=== PATIENT | male | born 1975 | race Caucasian/White ===

== ENCOUNTER 2020-06-13 04:35 | Emergency (ER) | payer OTHER, SELFPAY ==
[2020-06-13 04:40] VITALS: BP 171/93; PULSE 60; RESP 15; TEMP 36.2; O2SAT 100
--- NOTE | 2020-06-13 05:54 | ED.GENADULT ---
HPI - General Adult General Chief complaint: Unspecified Stated complaint: Facial swelling Time Seen by Provider: 06/13/20 05:08 History of Present Illness HPI narrative: Patient is a 44-year-old male who presents the ER with left facial swelling. Patient has a small area of his upper lip that has been acting up for the last 6 to 9 months. It drains purulent material when he squeezes it. Last drained a couple days ago. Since then he is felt little nodule and that his face began to swell. No fevers or chills or sweats. No difficulty breathing or swallowing. He has not seen anybody about this and never required antibiotics. Related Data Home Medications Medication Instructions Recorded Confirmed magnesium 250 mg tablet 400 mg PO DAILY tablet 08/17/19 08/17/19 multivitamin 1 tablet PO DAILY 08/17/19 08/17/19 omega-3 fatty acids 1,000 mg 1,000 mg PO DAILY 08/17/19 08/17/19 capsule Allergies Allergy/AdvReac Type Severity Reaction Status Date / Time No Known Allergies Allergy Unverified 08/17/19 08:30 Review of Systems Constitutional: Constitutional: Denies chills and Denies fever(s) Integumentary/Breasts: Comments: Left facial swelling around a small blemish. PMFSH Social History Social History Smoking status: Never smoker Alcohol intake: current Exam Narrative: Exam Narrative: GENERAL: Well-appearing, well-nourished, and in no acute distress. HEAD: Normocephalic, atraumatic. ENT: Mucous membranes moist. Swelling of the left upper lip going up towards the eye. No cellulitis. Nontender. Small blemish to the left upper lip that may represent a cyst or irritated hair follicle. NEURO: Alert and oriented x3. Course Course Emergency Course: Discharge with antibiotics. Vital Signs Vital signs: Vital Signs Temperature 97.2 F L 06/13/20 04:40 Pulse Rate 60 06/13/20 04:40 Respiratory Rate 15 06/13/20 04:40 Blood Pressure 171/93 H 06/13/20 04:40 Pulse Oximetry 100 06/13/20 04:40 Temperature 97.2 F L 06/13/20 04:40 Pulse Rate 60 06/13/20 04:40 Respiratory Rate 15 06/13/20 04:40 Blood Pressure 171/93 H 06/13/20 04:40 Pulse Oximetry 100 06/13/20 04:40 Medical Decision Making Vital Signs Vital Signs: Vital Signs Temperature 97.2 F L 06/13/20 04:40 Pulse Rate 60 06/13/20 04:40 Respiratory Rate 15 06/13/20 04:40 Blood Pressure 171/93 H 06/13/20 04:40 Pulse Oximetry 100 06/13/20 04:40 Temperature 97.2 F L 06/13/20 04:40 Pulse Rate 60 06/13/20 04:40 Respiratory Rate 15 06/13/20 04:40 Blood Pressure 171/93 H 06/13/20 04:40 Pulse Oximetry 100 06/13/20 04:40 Discharge Plan Discharge Clinical Impression: Infected cyst of skin Patient Disposition: Home, Self-Care Condition: Stable Instructions: Abscess (ED), Cyst (ED) Additional Instructions: Return the ER if your swelling is worsening, you cannot breathe, you cannot swallow or you have other concerns. Follow-up with plastic surgeon for further management. Prescriptions: New sulfamethoxazole-trimethoprim [Bactrim DS] 800-160 mg tablet 1 tablet PO Q12H Qty: 14 RF: 0 No Action multivitamin [Daily Multi-Vitamin] Tablet 1 tablet PO DAILY RF: 0 omega-3 fatty acids [Fish Oil Concentrate] 1,000 mg capsule 1,000 mg PO DAILY RF: 0 magnesium 250 mg tablet 400 mg PO DAILY RF: 0 rosuvastatin [Crestor] 10 mg tablet 10 mg PO DAILY Qty: 90 RF: 1 Follow-up/Referrals: Kartik Torres MD [Physician] - 1 Week Bashir Roe MD [Physician] - 1 Week Jaleel Medina DO [Primary Care Provider] -
[2020-06-13 06:25] VITALS: BP 144/106; PULSE 67; RESP 17; O2SAT 97
== END 2020-06-13 06:26 | disposition home or self-care (01) ==
PROVIDERS: Emergency Provider Emergency Medicine; PCP Internal Medicine
DX: L72.9 Follicular cyst of the skin and subcutaneous tissue, unspecified (principal); L08.9 Local infection of the skin and subcutaneous tissue, unspecified
CPT/HCPCS: 99283

== ENCOUNTER 2020-07-03 09:40 | Outpatient (CLI) | payer OTHER, SELFPAY ==
--- NOTE | 2020-07-08 12:40 | WPDHOLTEREM ---
Holter/Event Monitor Holter/Event Monitor Date of procedure: 07/03/20 Procedure Type: 24 hour holter monitor Indications: PVC's Conclusion: 1. 24 hour holter monitor on 07/03/20. 2. Underlying rhythm is sinus rhythm. HR range 45-109 bpm; average HR 70 bpm. 3. There are 6 premature supraventricular complexes. No supraventricular tachycardia. 4. There are 1,145 premature ventricular complexes, 1 ventricular couplet, 78 ventricular bigeminy. No ventricular tachycardia. 5. No sinoatrial or atrioventricular blocks. No significant pauses greater than 2 seconds. 6. No symptoms available for correlation.
== END 2020-07-03 09:41 | disposition home or self-care (01) ==
LOC: ANHCARD 09:42
PROVIDERS: PCP Internal Medicine; Visit Provider Internal Medicine
DX: I49.3 Ventricular premature depolarization (principal)
CPT/HCPCS: 93225; 93226

== ENCOUNTER 2020-09-26 12:04 | Inpatient (IN) | payer OTHER, SELFPAY ==
[2020-09-26] VITALS (11 sets, daily range): BP systolic 131–163; BP diastolic 68–79; PULSE 73–90; RESP 13–20; TEMP 36.9–37.9; O2SAT 90–96
--- NOTE | ~2020-09-26 | CT_ITS ---
EXAMINATION: CTA chest PE protocol DATE: 09/26/2020 14:04 INDICATION: Shortness of breath and cough. Chest pain. TECHNIQUE: Computed tomography angiography (CTA) of the chest was performed with 100 mL Omnipaque-350 intravenous contrast timed to evaluate the pulmonary arteries. Coronal maximum intensity projection 3D-reconstructions were created by the technologist. Automated exposure control and iterative reconst ruction technique were employed. The dose-length product was 926.10 mGy-cm. COMPARISON: CT abdomen and pelvis 01/05/16 FINDINGS: There are patchy groundglass opacities with septal thickening involving all lobes. No pleur al effusion. The heart size is normal. No pericardial effusion. There is mild mediastinal and bilater al hilar lymphadenopathy. No pulmonary embolus. There is mild thoracic spondylosis. IMPRESSION: 1. No pulmonary embolus. Sensitivity and specificity are moderately decreased by motion artifact. 2. Diffuse lung disease, consistent with COVID-19 pneumonia. 3. Mild mediastinal and bilateral hilar lymphadenopathy, likely reactive. Reviewed, dictated and finalized at location A. RISK OB IMPRESSION: 1. No pulmonary embolus. Sensitivity and specificity are moderately decreased b y motion artifact. 2. Diffuse lung disease, consistent with COVID-19 pneumonia. 3. Mild mediastinal and bilateral hilar lymphadenopathy, likely reactive.
--- NOTE | ~2020-09-26 | XR_ITS ---
EXAMINATION: XR chest 1V portable DATE: 09/26/2020 13:14 INDICATION: Shortness of breath. Fever. COVID-19 exposure. TECHNIQUE: A single frontal view of the chest was obtained. COMPARISON: Chest 2 views 05/04/2011, CT abdomen and pelvis 01/05/16 FINDINGS: There are patchy airspace opacities in all lung zones bilaterally. No pleural effusion or p neumothorax. The heart size is normal. IMPRESSION: 1. Diffuse lung disease, consistent with COVID-19 pneumonia. Reviewed, dictated and finalized at location A. ETING TECHNOLOGY COORDINATOR
--- NOTE | 2020-09-26 12:15 | ECG_ITS ---
Measurements Intervals [place] Rate: 86 P: 32 NC: 181 QRS: -5 QRSD: 103 T: -1 QT: 364 QTc: 436 Interpretive Statements SINUS RHYTHM INCOMPLETE RIGHT BUNDLE BRANCH BLOCK DELAYED PRECORDIAL R/S TRANSITION BORDERLINE T WAVE ABNORMALITY- INFERIOR LEADS BORDERLINE ECG Electronically Signed On 09-26-2020 13:05:51 [employer]PER[employer]ING by Tank Padgett D.O.
--- NOTE | 2020-09-26 12:41 | PC.NURSE ---
Patient placed on oxygen at 2 Li NC for room air sat of 89%.
--- NOTE | 2020-09-26 13:01 | ED.GENADULT ---
HPI - General Adult General Chief complaint: Upper Respiratory Infection Stated complaint: COVID+, SOB Time Seen by Provider: 09/26/20 12:35 Source: patient Mode of arrival: ambulatory Limitations: no limitations History of Present Illness HPI narrative: This patient is a 45 year old male who presents for evaluation of shortness of breath. He states he developed symptoms 1 days ago. His symptoms started with chills, sweating, body aches, fever. He reports he was tested about 8 days ago , and it was negative. His and daughter tested positive. He reports he has continued to have intermittent fever. He reports having a headache that has now resolved. He is here in ER because he has been having worsening shortness of breath. He reports he is having symptoms of pain and difficulty taking a breath in. Related Data Home Medications Medication Instructions Recorded Confirmed magnesium 250 mg tablet 400 mg PO DAILY tablet 08/17/19 09/26/20 multivitamin 1 tablet PO DAILY 08/17/19 09/26/20 omega-3 fatty acids 1,000 mg 1,200 mg PO DAILY 08/17/19 09/26/20 capsule Allergies Allergy/AdvReac Type Severity Reaction Status Date / Time No Known Allergies Allergy Verified 09/26/20 12:19 Review of Systems Review of Systems: All systems reviewed & are unremarkable except as noted in HPI and below Constitutional: Constitutional: Reports chills, Reports fatigue and Reports fever(s) Respiratory: Respiratory: Reports cough and Reports dyspnea Gastrointestinal: Gastrointestinal: Denies abdominal pain and Reports nausea Musculoskeletal: Musculoskeletal: Reports myalgias Neurologic: Reports headache(s) [facility] Past Medical History Medical History (Updated 09/26/20 @ 23:26 by Carol De Leon MD) Asthma As a child but outgrew it. 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 The patient is a full code. His is the durable power contracts attorney for healthcare. They have 2 children. Patient is a lifelong non smoker and occasionally has a drink of alcohol. No marijuana or illicit drugs. Smoking status: Never smoker Alcohol intake: never Substance use: never Gender identity (if verbalized by the patient): Male Spiritual care concerns: No Exam Const: General: no acute distress and alert Orientation/consciousness: patient oriented x3 HENMT: Head: atraumatic General nose exam: No nasal polyps present Face and sinus: face symmetric Mouth: Yes Normal oral and palatal mucosa present, Yes lip normal, Yes oropharynx normal and Yes moist mucous membranes Throat: posterior oropharynx normal and tonsils normal Eyes: Pupils: Equal, round and reactive pupils present EOM: EOMs intact bilaterally Resp: Effort & Inspection: normal respiratory effort and not tachypneic Auscultation: no rales, no rhonchi, no wheezes and diminished lung sounds Cardio: Rate: regular rate Rhythm: regular rhythm Heart sounds: no murmurs GI: GI Palp: Yes Soft to palpation, No Tenderness to palpation present (GI) and No Guarding due to palpation present (GI) Auscultation: normal bowel sounds Neuro: General: patient oriented x3 and moves all extremities Extrem: General: normal to inspection Psych: Mental Status: mental status steve
[2020-09-26 13:20] LABS: Basophils Percent Auto 0.2 % (0.2-1.2); Hematocrit 40.7 % (42.0-52.0); Hemoglobin 13.3 g/dL (14.0-18.0); Immature Granulocyte Absolute 0.05 K/mm3 (0.00-0.031); Immature Granulocyte Percent A 0.5 % (0-0.5); Lymphocytes Percent Auto 10.8 % (18.3-44.2); Mean Corpuscular HGB Conc 32.7 g/dl (32-36); Mean Corpuscular Hemoglobin 27.4 pg (26-34); Mean Corpuscular Volume 83.9 fl (80-100); Mean Platelet Volume 11.1 fl (7.4-10.4); Monocytes Absolute Auto 0.8 K/mm3 (0.1-0.6); Monocytes Percent Auto 8.4 % (2.6-8.5); Neutrophils Absolute Auto 7.4 K/mm3 (1.3-6.7); Neutrophils Percent Auto 80.1 % (45.5-73.1); Platelet Count Result 195 k/mm3 (150-375); Red Blood Count 4.85 M/mm3 (4.6-6.20); Red Cell Distribution Width 13.6 % (11.5-14.5); White Blood Count 9.3 K/mm3 (4.5-10.0)
[2020-09-26] MEDS: ALBUTEROL SULFATE (*SP) AEROSOL 1 PUFF 6 PUFF INHALATION (13:21)
[2020-09-26 13:31] LABS: Prothrombin Time 14.1 Seconds (11.1-14.7)
[2020-09-26 13:32] LABS: Partial Thromboplastin Time 32.5 SECONDS (22.3-36.8)
[2020-09-26 13:33] LABS: Lactic Acid Reflex 0.9 mmol/L (0.7-2.1)
[2020-09-26 13:34] LABS: D Dimer 0.87 ug/mL (<0.48)
[2020-09-26 13:35] LABS: Alanine Aminotransferase 46 U/L (4-50); Albumin Level 3.8 g/dL (3.5-5.1); Alkaline Phosphatase 51 U/L (38-126); Anion Gap 6 mmol/L (8-16); Aspartate Amino Transferase 54 U/L (17-59); Bilirubin,Total 0.6 mg/dL (0.2-1.3); Blood Urea Nitrogen 16 mg/dL (9-20); CRP 3.5 mg/dL (<1.0); Calcium 8.3 mg/dL (8.4-10.2); Carbon Dioxide 28 mmol/L (22-30); Chloride 102 mmol/L (98-107); Estimated CRCL calculation 114 ml/min; Estimated Glomerular Filt Rate > 60; Glucose 127 mg/dL (75-110); Sodium 136 mmol/L (137-145)
[2020-09-26 13:41] LABS: Alveolar/Arterial O2 Gradient 101.4 mmHg; Base Excess ABG -0.2 mEq/l (+/-2.0); Carboxyhemoglobin 0.3 % THb (0-2.0); Fractional Inspired Oxygen 28 %; HCO3 ABG 22.7 mEq/l (22.0-26.0); Methemoglobin ABG 0.2 %THb (0-1.5); Oxygen Content ABG 17.7 %vol (16.0-22.0); Oxygen Saturation ABG 92.9 % (95.0-100.0); Oxyhemoglobin 91.1 % THb (90.0-100.0); PO2 ABG 60.5 mmHg (80.0-100.0); PO2 FiO2 Ratio Arterial Blood 2.16 %; Reduced Hemoglobin 8.4 %THb (0-5.0); Total Hemoglobin 13.8 g/dL (12.0-18.0); pH ABG 7.468 (7.350-7.450)
[2020-09-26 13:42] LABS: Device ROOM AIR; Site Drawn RIGHT BRACHIAL
[2020-09-26 13:44] LABS: NT Pro B Type Natriuretic Pept 43 PG/ML (5-100); Troponin I < 0.012 ng/mL (0.000-0.034)
[2020-09-26 13:50] LABS: Add Urine Microscopic? YES; Appearance Urine Clear (Clear); Bacteria Urine Trace /hpf; Bilirubin Urine Negative (Negative); Blood Urine Negative (Negative); Color Urine Yellow (Yellow); Glucose Urine UA Negative (Negative); Ketones Urine Trace mg/dL (Negative); Leukocyte Esterase Ur Negative LEU/UL (Negative); Mucus Urine Moderate /lpf; Nitrate Urine Negative (Negative); Protein Urine 1+ mg/dL (Negative); RBC Urine 0-2 /hpf (0-2); Specific Grav Ur 1.021 (1.001-1.035); WBC Urine 0-3 /hpf
[2020-09-26] MEDS: DEXAMETHASONE SOD PHOS INJ 4 MG/ML VIAL 6 MG IV PUSH (14:30)
--- NOTE | 2020-09-26 16:29 | ADMGEN ---
This patient, Antonio Cabrera, was admitted to [facility] Surg Room 326-01. Patient/family oriented to hospital policies and general routines including ID bracelet, bed and alarms, visiting hours, pain management, procedures, bathroom and other care routines, personal items, smoking policy, room service/diet, and visiting hours. Information on how to activate the Rapid Response Team has been discussed. Patient/Family are encouraged to report perceived risks to care and to ask questions if they do not understand what they are told or what they should do.
[2020-09-26] MEDS: ACETAMINOPHEN 325 MG TABLET 650 MG PO (17:00)
--- NOTE | 2020-09-26 21:20 | PM.IMHP ---
H&P: HPI History of Present Illness Date/Time: 09/26/20 21:20 Chief Complaint: Shortness of breath Narrative: Antonio Cabrera is a 45 year old male rest a history of hypertension and asthma as a child. He no longer has a inhaler at home. The patient has a history of having frequent PVCs and palpitations. The patient and his family have symptoms of COVID-19. His and 2 children tested positive. Eight days ago the patient tested negative. However the patient has been short of breath which got worse about a day ago and he still continues to run fevers. The patient stated he feels very fatigued. He does not have any loss of taste or smell. Patient stated that he is eating and drinking okay today. He did have some nausea earlier but that is pretty much subsided. The patient stated he is having difficulty taking in a deep breath. He did have a CT a pulmonary which is negative for PE. Was read as diffuse lung disease consistent with COVID-19 pneumonia. Mild mediastinal and bilateral hilar lymphadenopathy likely reactive. The patient stated that his symptoms initially started on the of this month. The patient was started on IV Decadron and placed on oxygen at 2 L per nasal cannula. We discussed positioning with pronation for 30 minutes to 2 hours rotating from side to side and on his back. The patient was requesting some nebulizer treatments but I explained that we need to use the inhaler instead of the nebulizer since the patient is not in a negative pressure room. On a Zithromax and Rocephin and given an inhaler that Decadron and Tylenol in the emergency room. The patient is admitted to observation status on the date of service 09/26/2020. Review of Systems Review of Systems: All systems reviewed & are unremarkable except as noted in HPI and below Constitutional: Constitutional: Reports as per HPI and Reports no additional constitutional complaints Eyes: Eyes: Reports as per HPI and Reports no additional eye complaints ENT: Reports system reviewed and no additional complaints, except as documented and Reports Normal hearing present Cardiovascular: Cardiovascular: Reports no additional cardiovascular complaints Respiratory: Respiratory: Reports no additional respiratory complaints and Reports no additional respiratory complaints Gastrointestinal: Gastrointestinal: Reports as per HPI and Reports no additional gastrointestinal complaints Musculoskeletal: Musculoskeletal: Reports no additional musculoskeletal complaints Integumentary/Breasts: Skin/Breast: Reports system reviewed and no additional complaints, except as docu and Reports as per HPI Neurologic: Reports system reviewed and no additional complaints, except as documented, Reports as per HPI and Reports Normal hearing present Psychiatric: Psychiatric: Reports no additional psychiatric complaints and Reports as per HPI Endocrine: Endocrine: Reports no additional endocrine complaints Hematologic/Lymphatic: Hematologic/Lymphatic: Reports no additional hematologic/lymphatic complaints Allergic/Immunologic: Allergic/Immunologic: Reports no additional allergic/immunologic complaints [facility] Past Medical History Medical History (Updated 09/26/20 @ 21:39 by Janette Grove NP) Asthma As a child but outgrew it. 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
[2020-09-26 22:42] LABS: SARS-CoV-2 RNA PCR Positive
[2020-09-27] VITALS (11 sets, daily range): BP systolic 137–160; BP diastolic 56–84; PULSE 66–88; RESP 16–20; TEMP 36.4–38.5; O2SAT 92–100
[2020-09-27] MEDS: ALBUTEROL SULFATE (*SP) AEROSOL 1 PUFF 2 PUFF INHALATION ×4 (02:35→21:08)
[2020-09-27 06:55] LABS: Basophils Percent Auto 0.1 % (0.2-1.2); Hematocrit 40.4 % (42.0-52.0); Hemoglobin 13.3 g/dL (14.0-18.0); Immature Granulocyte Absolute 0.07 K/mm3 (0.00-0.031); Immature Granulocyte Percent A 0.6 % (0-0.5); Lymphocytes Absolute Auto 0.87 K/mm3 (0.9-3.2); Lymphocytes Percent Auto 7.5 % (18.3-44.2); Mean Corpuscular HGB Conc 32.9 g/dl (32-36); Mean Corpuscular Hemoglobin 27.4 pg (26-34); Mean Corpuscular Volume 83.3 fl (80-100); Monocytes Absolute Auto 0.9 K/mm3 (0.1-0.6); Monocytes Percent Auto 7.3 % (2.6-8.5); Neutrophils Absolute Auto 9.8 K/mm3 (1.3-6.7); Neutrophils Percent Auto 84.5 % (45.5-73.1); Platelet Count Result 223 k/mm3 (150-375); Red Blood Count 4.85 M/mm3 (4.6-6.20); Red Cell Distribution Width 13.4 % (11.5-14.5); White Blood Count 11.6 K/mm3 (4.5-10.0)
[2020-09-27 07:11] LABS: Alanine Aminotransferase 48 U/L (4-50); Albumin Level 3.8 g/dL (3.5-5.1); Alkaline Phosphatase 50 U/L (38-126); Anion Gap 6 mmol/L (8-16); Aspartate Amino Transferase 51 U/L (17-59); Bilirubin,Total 0.5 mg/dL (0.2-1.3); Blood Urea Nitrogen 16 mg/dL (9-20); Calcium 8.6 mg/dL (8.4-10.2); Carbon Dioxide 30 mmol/L (22-30); Chloride 103 mmol/L (98-107); Estimated CRCL calculation 140 ml/min; Estimated Glomerular Filt Rate > 60; Glucose 152 mg/dL (75-110); Sodium 139 mmol/L (137-145)
[2020-09-27] MEDS: OMEGA 3 POLYUNSAT FATTY ACIDS 1 GM CAP PO (09:25)
[2020-09-27] MEDS: MULTIVITAMINS THERAPEUTIC TAB (*BKC) 1 TABLET PO (09:25)
[2020-09-27] MEDS: amLODIPine BESYLATE 5 MG TABLET PO (09:25)
[2020-09-27] MEDS: ROSUVASTATIN 10 MG TABLET PO (09:25)
[2020-09-27] MEDS: DEXAMETHASONE SOD PHOS INJ 4 MG/ML VIAL 6 MG IV PUSH (09:26)
[2020-09-27] MEDS: ENOXAPARIN 40 MG/0.4 ML SYRINGE SUB-Q (09:26)
[2020-09-27] MEDS: MAGNESIUM OXIDE 400 MG TABLET PO (11:54)
--- NOTE | 2020-09-27 14:30 | PM.IMPN ---
Progress Note: A&P Assessment and Plan (1) Pneumonia due to COVID-19 virus: Code(s): U07.1 - COVID-19; J12.82 - Pneumonia due to coronavirus disease 2019 Status: Acute Assessment and Plan: With acute respiratory failure with hypoxia, initially requiring 2 L O2 NC, now on RA. Patient outside window for Remdesivir. He was placed on Decadron from ED. IV antibiotics in ED; has since been d/c. Continue with IV decadron (day #2) Will continue with supportive care with Robitussin and Tylenol prn Continue with inhalers. Proning and Incentive spirometer encouraged Home O2 Eval tomorrow Anticipate d/c tomorrow if on RA for >24 hours (2) Hypertension: Code(s): I10 - Essential (primary) hypertension Status: Chronic Assessment and Plan: BP 160s sys most recently continue with home antihypertensives (3) Mixed hyperlipidemia: Code(s): E78.2 - Mixed hyperlipidemia Status: Chronic Assessment and Plan: Continue with home meds (4) PVCs (premature ventricular contractions): Code(s): I49.3 - Ventricular premature depolarization Status: Acute Assessment and Plan: No acute issues. F/u with Senior Software Engineer Subjective Date/time seen: 09/27/20 14:30 Interval history: Patient is a 45 yo M with history of HTN and HLD, and distant history of childhood asthma who is seen in follow up for COVID pneumonia and acute respiratory failure with hypoxia. Reports symptoms started roughly 2 weeks ago. Patient states he feels much better today. Less SOB and able to take deep inspirations. Denies cough. He recently was placed on RA today and is tolerating it fine thus far. Had some chills/sweats last night, but resolved. No other complaints. Denies f/c/s, headaches, dizziness, lightheadedness, cp/palpitations, n/v/d/c, abd pain, dysuria, calf pain/swelling. Review of Systems Review of Systems: All systems reviewed & are unremarkable except as noted in HPI and below Exam Narrative: Exam Narrative: General: Patient sitting on couch in no acute distress. HEENT: Normocephalic, EOMI, oral mucosa moist. Cardiovascular: Rate and rhythm are regular. No notable murmur, rub, or gallop. Respiratory: Slightly coarse breath sounds b/l, diminished BS, Non-labored breathing. On RA at time of visit Abdomen: Soft, non-tender, non-distended, bowel sounds present. Extremities: Peripheral pulses intact. No edema. NTTP b/l calves Neuro: No focal neurological deficits. Speech is clear. Objective Data Vital Signs Vital Signs: Last Vital Signs Temp 98.6 F 09/27/20 12:00 Pulse 78 09/27/20 12:00 Resp 18 09/27/20 12:00 BP 160/69 H 09/27/20 12:00 Pulse Ox 96 09/27/20 13:24 Intake/Output Intake/Output: Intake & Output 09/24/20 09/25/20 09/26/20 09/27/20 23:59 23:59 23:59 23:59 Intake Total 390 860 Balance 390 860 Meds/Results Medications: Active Medications Generic Name Dose Route Start Last Admin Trade Name Peggy PRN Reason Stop Dose Admin Acetaminophen 650 mg 09/26/20 16:41 09/26/20 17:00 Acetaminophen 325 Mg Tablet PO 650 mg Q4H PRN Administration Headache Albuterol 2 puff 09/27/20 02:00 09/27/20 09:26 Albuterol Sulfate (*Sp) Aerosol 1 Puff INHALATION 2 puff Q6HRT CHELSEA Administration Amlodipine Besylate 5 mg 09/27/20 09:00 09/27/20 09:25 Amlodipine Besylate 5 Mg Tablet PO 5 mg DAILY CHELSEA Administration Dexamethasone Sodium Phosphate 6 mg 09/27/20 09:00 09/27/20 09:26 Dexamethasone Sod Phos Inj 4 Mg/Ml Vial IV PUSH 10/05/20 09:01 6 mg DAILY CHELSEA Administration Enoxaparin Sodium 40 mg 09/27/20 09:00 09/27/20 09:26 Enoxaparin 40 Mg/0.4 Ml Syringe SUB-Q 40 mg DAILY CHELSEA Administration Fish Oil 1 gm 09/27/20 09:00 09/27/20 09:25 [place] 3 Polyunsa
[2020-09-27] MEDS: ACETAMINOPHEN 325 MG TABLET 650 MG PO (17:49)
[2020-09-27] MEDS: guaiFENesin/DEXTROMETHORPHAN 10 ML UDC PO (21:11)
[2020-09-28] VITALS (10 sets, daily range): BP systolic 133–148; BP diastolic 64–94; PULSE 66–78; RESP 16–20; TEMP 36.5–37.4; O2SAT 86–95
[2020-09-28] MEDS: ALBUTEROL SULFATE (*SP) AEROSOL 1 PUFF 2 PUFF INHALATION ×3 (02:05→13:19)
[2020-09-28 06:56] LABS: Basophils Percent Auto 0.2 % (0.2-1.2); Hemoglobin 12.5 g/dL (14.0-18.0); Immature Granulocyte Absolute 0.16 K/mm3 (0.00-0.031); Lymphocytes Absolute Auto 1.09 K/mm3 (0.9-3.2); Lymphocytes Percent Auto 6.9 % (18.3-44.2); Mean Corpuscular HGB Conc 32.9 g/dl (32-36); Mean Corpuscular Hemoglobin 27.4 pg (26-34); Mean Corpuscular Volume 83.2 fl (80-100); Mean Platelet Volume 10.9 fl (7.4-10.4); Monocytes Percent Auto 6.5 % (2.6-8.5); Neutrophils Absolute Auto 13.6 K/mm3 (1.3-6.7); Neutrophils Percent Auto 85.4 % (45.5-73.1); Platelet Count Result 248 k/mm3 (150-375); Red Blood Count 4.57 M/mm3 (4.6-6.20); Red Cell Distribution Width 13.7 % (11.5-14.5); White Blood Count 15.9 K/mm3 (4.5-10.0)
[2020-09-28 07:23] LABS: Anion Gap 6 mmol/L (8-16); Blood Urea Nitrogen 19 mg/dL (9-20); Calcium 8.3 mg/dL (8.4-10.2); Carbon Dioxide 26 mmol/L (22-30); Chloride 104 mmol/L (98-107); Estimated CRCL calculation 125 ml/min; Estimated Glomerular Filt Rate > 60; Glucose 140 mg/dL (75-110); Magnesium 2.1 mg/dL (1.6-2.3); Potassium 4.1 mmol/L (3.4-5.0); Sodium 136 mmol/L (137-145)
[2020-09-28] MEDS: ENOXAPARIN 40 MG/0.4 ML SYRINGE SUB-Q (08:49)
[2020-09-28] MEDS: OMEGA 3 POLYUNSAT FATTY ACIDS 1 GM CAP PO (08:50)
[2020-09-28] MEDS: MULTIVITAMINS THERAPEUTIC TAB (*BKC) 1 TABLET PO (08:50)
[2020-09-28] MEDS: amLODIPine BESYLATE 5 MG TABLET PO (08:50)
[2020-09-28] MEDS: MAGNESIUM OXIDE 400 MG TABLET PO (08:50)
[2020-09-28] MEDS: DEXAMETHASONE SOD PHOS INJ 4 MG/ML VIAL 6 MG IV PUSH (08:50)
[2020-09-28] MEDS: ROSUVASTATIN 10 MG TABLET PO (08:50)
--- NOTE | 2020-09-28 11:49 | PM.DS ---
DS: Admitting Diagnosis Admitting Diagnosis Admitting Diagnosis: COVID pneumonia, acute respiratory failure with hypoxia DS: Discharge Diagnosis Discharge Diagnosis (1) Pneumonia due to COVID-19 virus: Code(s): U07.1 - COVID-19; J12.82 - Pneumonia due to coronavirus disease 2018 Status: Acute Assessment and Plan: With acute respiratory failure with hypoxia, intermittently on O2 NC. Patient outside window for Remdesivir. He was placed on Decadron from ED. IV antibiotics in ED; has since been d/c. He feels better today and comfortable with discharge home with supportive care Decadron IV x 3 days during stay; will do 5 additional days of PO dexamehtasone Home O2 eval today Continue with supportive care with Robitussin and Tylenol prn Continue with inhaler at discharge Proning and Incentive spirometer encouraged Discharge home today after Home O2 eval (2) Hypertension: Code(s): I10 - Essential (primary) hypertension Status: Chronic Assessment and Plan: BP 130s sys most recently continue with home antihypertensives (3) Mixed hyperlipidemia: Code(s): E78.2 - Mixed hyperlipidemia Status: Chronic Assessment and Plan: Continue with home meds (4) PVCs (premature ventricular contractions): Code(s): I49.3 - Ventricular premature depolarization Status: Acute Assessment and Plan: No acute issues. F/u with Chiseler Head DS: Summary Hospital Course Reason for hospitalization: COVID pneumonia, acute respiratory failure with hypoxia Hospital Course: Date of arrival: 09/26/20 Date of discharge: 09/28/20 Patient is a 45 yo M with history of HTN and HLD, and distant history of asthma who presented to the ED with SOB. Patient symptoms started roughly 2 weeks prior to admission. He was tested for COVID 8 days prior to arrival and was negative, however, his and daughter had similar symptoms and tested positive. In the ED, he was swabbed for COVID again and placed on 2L O2 NC as he was found to be mildly hypoxic. He was started on Decadron in the ED. Patient admitted under this setting. Please see H&P for further details. Patient was admitted to the hospitalist service for further management/treatment. Patient continued on IV Decadron during stay. He was briefly weaned to RA was again placed on O2 prior to discharge. Home O2 eval showed he needed no oxygen at rest and 2 L with activity. Plan was for him to be discharge with 5 days of PO dexamethasone and an albuterol inhaler. he was to follow up with his PCP after discharge. He was instructed to continue to isolate and follow up with his PCP to discuss when to come off isolation. His VS remained stable during course. Patient agreeable and comfortable with plan for discharge. Patient hemodynamically stable and in improved condition for discharge on 09/28 Status at Discharge Overall status at discharge: patient is progressing back to baseline Time Spent with Patient Time attestation: Total time spent providing and/or coordinating discharge services: Time spent: Greater than 30 minutes Exam Narrative: Exam Narrative: General: Patient sitting on couch in no acute distress. HEENT: Normocephalic, EOMI, oral mucosa moist. Cardiovascular: Rate and rhythm are regular. No notable murmur, rub, or gallop. Respiratory: Slightly coarse breath sounds b/l, diminished BS, Non-labored breathing. On 2L O2 via NC at time of visit Abdomen: Soft, non-tender, non-distended, bowel sounds present. Extremities: Peripheral pulses intact. No edema. NTTP b/l calves Neuro: No focal neurological deficits. Speech is clear. DS: Data Data Completed and Pending Labs on day of discharge: Laboratory Tests 09/28/20 06:46 09/28/20 06:46 [employer]
--- NOTE | 2020-09-28 13:59 | HOMEO2EVAL ---
Addendum entered by Vanna Marc, BREAKFAST MANAGER 09/28/20 14:01: Pt requires 2L Nc with exertion Original Note: Home Oxygen Evaluation RC: Home Oxygen (O2) Evaluation Start: 09/28/20 10:00 Freq: ONCE Status: Active Protocol: RPE Activity Type Activity Date Activity User E-Sign Co-Sign Detail Recorded Client Recorded Date Recorded By Document 09/28/20 12:30 TJT [email or web address] 09/28/20 13:51 TJT Document 09/28/20 12:40 TJT [email or web address] 09/28/20 13:54 TJT Document 09/28/20 12:45 TJT [email or web address] 09/28/20 13:55 TJT Document 09/28/20 12:50 TJT [email or web address] 09/28/20 13:57 TJT Document 09/28/20 12:35 TJT [email or web address] 09/28/20 13:52 TJT Document 09/28/20 13:57 TJT [email or web address] 09/28/20 13:58 TJT 09/28/20 09/28/20 09/28/20 12:30 12:40 12:45 Home O2 Evaluation Test Phase Resting Resting Exercise Oxygen Delivery Room Air Oxygen Flow Rate (L/min) 1 1 Fraction of Inspired Oxygen (%) 21 24 24 Pulse Oximetry (90-100 %) 90 91 86 L Pulse Rate (60-100 beats/min) 68 65 65 Activity Tolerance Good Good Ambulation Distance (feet) 75 Treatment Charges O2 Evaluation 09/28/20 09/28/20 09/28/20 12:50 12:35 13:57 Home O2 Evaluation Test Phase Resting Exercise Exercise Oxygen Delivery Room Air Oxygen Flow Rate (L/min) 2 2 Fraction of Inspired Oxygen (%) 28 21 28 Pulse Oximetry (90-100 %) 94 86 L 92 Pulse Rate (60-100 beats/min) 66 70 78 Activity Tolerance Good Good Good Ambulation Distance (feet) 75 75 Treatment Charges
--- NOTE | 2020-09-29 10:03 | PCRCNOTE ---
PT. O2 WAS SET UP WITH [facility] [phone]
--- NOTE | 2020-10-03 07:41 | PC.NURSE ---
Blood cx are negative.
== END 2020-09-28 16:15 | disposition home or self-care (01) | DRG 177 ==
LOC: ANHED 14:59 → ANH3MEDSUR 16:09
PROVIDERS: Physician Assistant; Admitting Provider Internal Medicine; Emergency Provider General Practice; PCP Internal Medicine; Visit Provider Family Medicine
DX: U07.1 COVID-19 (principal); J12.82 Pneumonia due to coronavirus disease 2019; E78.2 Mixed hyperlipidemia; I10 Essential (primary) hypertension; I49.3 Ventricular premature depolarization
CPT/HCPCS: 36415; 36600; 71045; 71275; 80048; 80053; 81001; 82375; 82805; 83050; 83605; 83735; 83880; 84484; 85025; 85380; 85610; 85730; 86140; 87040; 87804; 93005; 94618; 96365; 96372; 96374; 96375; 99291; A9270; C9803; G0378; J0456; J0696; J1100; J1650; Q9967; U0003; U0005

== ENCOUNTER 2021-08-25 00:13 | Day surgery (SDC) | payer OTHER, SELFPAY ==
[2021-08-13 15:08] VITALS: BMI 35.1
[2021-08-25 10:20] VITALS: BP 120/75; RESP 18; TEMP 36.8; O2SAT 99
[2021-08-25] MEDS: LACTATED RINGERS 1,000 ML 150 ML IV CONT (10:23)
--- NOTE | 2021-08-25 10:39 | WPDANESEPPF ---
Anes - Initial Pre Proc Eval Procedure: Operation Date: 08/25/21 12:30 Proposed Procedures p Screening Colonoscopy - Mitch Gonzales MD Date/Time: 08/25/21 10:39 Surgeon: Mitch Gonzales MD Pre Op Diagnosis: neoplasm screening Patient Data Age: 46 Gender: M Height: 1.88 m Weight: 120.6 kg Last Vital Signs Temp 98.3 F 08/25/21 10:20 Resp 18 08/25/21 10:20 BP 120/75 08/25/21 10:20 Pulse Ox 99 08/25/21 10:20 Allergies Allergy/AdvReac Type Severity Reaction Status Date / Time No Known Allergies Allergy Verified 08/25/21 10:19 Home Medications Medication Instructions Recorded Confirmed Type magnesium 250 mg tablet 400 mg PO DAILY tablet 08/17/19 08/25/21 History multivitamin 1 tablet PO DAILY 08/17/19 08/25/21 History omega-3 fatty acids 1,000 mg 1,200 mg PO DAILY 08/17/19 08/25/21 History capsule rosuvastatin 10 mg tablet 10 mg PO DAILY #90 tablet 12/26/20 08/25/21 Rx lisinopril 20 mg tablet 20 mg PO DAILY 07/03/21 08/25/21 History Patient hx anesthesia problems: none Family hx anesthesia problems: none Results Review: All pre-operative results and documents have been reviewed as part of the pre-operative evaluation. [facility] Past Medical History Medical History (Updated 07/03/21 @ 08:22 by Walter Sosa APRN) Asthma As a child but outgrew it. 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 The patient is a full code. His is the durable power trademark attorney for healthcare. They have 2 children. Patient is a lifelong non smoker and occasionally has a drink of alcohol. No marijuana or illicit drugs. Smoking status: Never smoker Second hand tobacco smoke exposure: Yes Alcohol intake: current Drinks per week: 4 Substance use: never Substance use type: does not use Living arrangements: with family Gender identity (if verbalized by the patient): Male Spiritual care concerns: No Anes - Eval Final PreProcedure Day of Procedure 08/25/21 10:39 Patient weight: obese Heart: regular rate and rhythm Lungs: clear to auscultation Airway: Mallampati scale class II Neurological: alert and oriented Last oral intake: >/= 8 hours ASA classification: II Emergent: no Anesthetic plan: proceed Anesthesia type and monitoring: general GIVS and standard monitoring Results Review: All pre-operative results and documents have been reviewed as part of the pre-operative evaluation. Informed Consent: The patient's anesthetic plan and its attendant risks and benefits were discussed with the patient/family/POA. Questions were solicited and answers provided to the satisfaction of the patient/family/POA.
--- NOTE | 2021-08-25 10:43 | PM.HPGS ---
History of Present Illness History of Present Illness Consent: Risks, benefits, and alternatives have been discussed and questions answered. Patient agrees to proceed with procedure. Chief complaint: neoplasm screening Narrative: Antonio Cabrera is a 46 year old male here for first screening colonoscopy Review of Systems Constitutional: Constitutional: Denies headache(s) and Denies weakness Eyes: Eyes: Denies blurry vision ENT: Reports Normal hearing present, Denies headache(s) and Denies neck pain Cardiovascular: Cardiovascular: Denies chest pain and Denies dyspnea Respiratory: Respiratory: Denies dyspnea Gastrointestinal: Gastrointestinal: Reports no additional gastrointestinal complaints Genitourinary: Genitourinary: Denies dysuria Musculoskeletal: Musculoskeletal: Denies neck pain Integumentary/Breasts: Skin/Breast: Denies dry skin Neurologic: Reports Normal hearing present, Denies headache(s) and Denies weakness Psychiatric: Psychiatric: Denies anxiety Endocrine: Endocrine: Denies change in body appearance Hematologic/Lymphatic: Hematologic/Lymphatic: Denies easy bleeding Allergic/Immunologic: Allergic/Immunologic: Denies urticaria PMFSH Past Medical History Medical History (Updated 07/03/21 @ 08:22 by Walter Sosa APRN) Asthma As a child but outgrew it. 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 The patient is a full code. His is the durable power estate planning attorney for healthcare. They have 2 children. Patient is a lifelong non smoker and occasionally has a drink of alcohol. No marijuana or illicit drugs. Smoking status: Never smoker Second hand tobacco smoke exposure: Yes Alcohol intake: current Drinks per week: 4 Substance use: never Substance use type: does not use Living arrangements: with family Gender identity (if verbalized by the patient): Male Spiritual care concerns: No Meds Home Medications and Allergies Home Medications Medication Instructions Recorded Confirmed Type magnesium 250 mg tablet 400 mg PO DAILY tablet 08/17/19 08/25/21 History multivitamin 1 tablet PO DAILY 08/17/19 08/25/21 History omega-3 fatty acids 1,000 mg 1,200 mg PO DAILY 08/17/19 08/25/21 History capsule rosuvastatin 10 mg tablet 10 mg PO DAILY #90 tablet 12/26/20 08/25/21 Rx lisinopril 20 mg tablet 20 mg PO DAILY 07/03/21 08/25/21 History Allergies Allergy/AdvReac Type Severity Reaction Status Date / Time No Known Allergies Allergy Verified 08/25/21 10:19 Vital Signs Vital Signs - 24 hr 08/25/21 10:20 Temperature 98.3 F Respiratory Rate 18 Blood Pressure 120/75 Pulse Oximetry 99 Exam Const: General: comfortable and no acute distress HENMT: General nose exam: Normal nares present Eyes: General: appearance normal, both eyes and all related structures Neck: Neck: no JVD Resp: Auscultation: clear to auscultation bilaterally Cardio: Rate: regular rate Rhythm: regular rhythm GI: Inspection: non-distended GI Palp: Yes Soft to palpation Skin: General skin exam: normal color Neuro: General: gait normal Speech: normal speech Extrem: General: normal to inspection Psych: Mental Status: mental status grossly normal Assessment and Plan Assessmen
[2021-08-25 11:07] VITALS: BP 114/69; PULSE 70; RESP 22; O2SAT 96
[2021-08-25 11:17] VITALS: BP 119/79; PULSE 50; RESP 20; O2SAT 98
[2021-08-25 11:27] VITALS: BP 122/78; PULSE 50; RESP 20; O2SAT 100
== END 2021-08-25 11:35 | disposition home or self-care (01) ==
PROVIDERS: PCP Internal Medicine; Visit Provider Internal Medicine Gastroenterology
PROC: 0DJD8ZZ Inspection of Lower Intestinal Tract, Via Natural or Artificial Opening Endoscopic (ICD-10-PCS; CPT 45378; principal; 2021-08-25 12:30)
DX: Z12.11 Encounter for screening for malignant neoplasm of colon (principal); K57.30 Diverticulosis of large intestine without perforation or abscess without bleeding; K64.8 Other hemorrhoids; I10 Essential (primary) hypertension; E78.2 Mixed hyperlipidemia; E66.9 Obesity, unspecified; Z68.34 Body mass index [BMI] 34.0-34.9, adult
CPT/HCPCS: 45378; J2704; J7120

== ENCOUNTER → 2022-01-08 09:04 | Outpatient (CLI) | payer OTHER, SELFPAY ==
--- NOTE | ~2022-01-08 | XR_ITS ---
EXAMINATION: XR shoulder RT min 2V DATE: 01/08/2022 11:47 INDICATION: Right shoulder pain. TECHNIQUE: 4 views of right shoulder were obtained. COMPARISON: None. FINDINGS: Bone alignment is normal. No fracture. There is mild osteoarthritis of glenohumeral joint a nd moderate osteoarthritis of acromioclavicular joint. IMPRESSION: 1. Polyarticular osteoarthritis. Reviewed, dictated and finalized at location A.
== END ==
PROVIDERS: PCP Internal Medicine; Visit Provider Internal Medicine
DX: M19.011 Primary osteoarthritis, right shoulder (principal)
CPT/HCPCS: 73030

== ENCOUNTER 2022-01-18 07:41 | Outpatient (RCR) | payer OTHER, SELFPAY ==
--- NOTE | 2022-01-18 07:29 | PTOPEVAL ---
Thank you for referring Antonio Cabrera to [facility].? The patient is scheduled to be seen for therapy? __2__x/week for 8 visits weeks. Please review, sign, date and return this plan of care DONOVAN. I agree with and certify that the following plan of care is medically necessary. Referring Physician Date Admitting Provider: Attending Provider: Jaleel Medina DO Referring Provider: *PT Outpatient Evaluation Start: 01/18/22 06:57 Freq: Status: Active Protocol: Document 01/18/22 06:58 HEMAL (Rec: 01/18/22 07:28 HEMAL [email or web address]) Therapy Assessment Status Assessment Status Assessment Status Evaluation Outpatient Past Medical History Neurological History Hx Neurological Disorders No Significant History Cardiovascular History Hx Hypercholesterolemia Yes Hx Hypertension Yes Hx Other Cardiac Disorders Yes: palpitations Respiratory History Hx Pneumonia Yes Gastrointestinal History Hx Gastrointestinal Disorders No Significant History Genitourinary History Hx Genitourinary Disorders No Significant History Musculoskeletal History Hx Other Musculoskeletal Disorders Yes: calcium deposit on right femur Hematological History Hx Hematological Disorders No Significant History Endocrine History Hx Endocrine Disorders No Significant History HEENT History Hx HEENT Disorders No Significant History Integumentary History Hx Skin Disorders No Significant History Reproductive History Hx Reproductive Disorders No Significant History Psychosocial History Hx Psychiatric Disorders No Significant History Pain History History of Any Previous or Ongoing No Significant History Instance of Pain Anesthesia History Hx Anesthesia Reactions No Significant History Evaluation Information Problem Diagnosis right shoulder pain Onset 10/13/21 Subjective Information Pt. reports that he slipped Query Text:As Reported By Patient/ fell getting out of a vehicle Family with wet feet. He states that he placed his arms out to brace himself. He reports that he developed immediate pain, but kept worsening with time. Pt. reports little change in his pain as of recently. He reports that pain is located on the front of the shoulder and along the side of the right shoulder. He also notes pain attempting to reach behind his back. He
--- NOTE | 2022-02-10 08:20 | PTOPEVAL ---
Thank you for referring Antonio Cabrera to [facility].? The patient is scheduled to be seen for therapy? ____x/week for ___ weeks. Please review, sign, date and return this plan of care DONOVAN. I agree with and certify that the following plan of care is medically necessary. Referring Physician Date Admitting Provider: Attending Provider: Jaleel Medina DO Referring Provider: *PT Outpatient Evaluation Start: 01/18/22 06:57 Freq: Status: Active Protocol: Document 02/10/22 07:05 Girish (Rec: 02/10/22 08:13 EBONY [email or web address]) Therapy Assessment Status Assessment Status Assessment Status Discharge Outpatient Past Medical History Neurological History Hx Neurological Disorders No Significant History Cardiovascular History Hx Hypercholesterolemia Yes Hx Hypertension Yes Hx Other Cardiac Disorders Yes: palpitations Respiratory History Hx Pneumonia Yes Gastrointestinal History Hx Gastrointestinal Disorders No Significant History Genitourinary History Hx Genitourinary Disorders No Significant History Musculoskeletal History Hx Other Musculoskeletal Disorders Yes: calcium deposit on right femur Hematological History Hx Hematological Disorders No Significant History Endocrine History Hx Endocrine Disorders No Significant History HEENT History Hx HEENT Disorders No Significant History Integumentary History Hx Skin Disorders No Significant History Reproductive History Hx Reproductive Disorders No Significant History Psychosocial History Hx Psychiatric Disorders No Significant History Pain History History of Any Previous or Ongoing No Significant History Instance of Pain Anesthesia History Hx Anesthesia Reactions No Significant History Evaluation Information Problem Diagnosis right shoulder pain Onset 10/13/21 Additional Evaluation Detail 6.8% Functionally Impaired Subjective Information Pt reports that his shoulder Query Text:As Reported By Patient/ is feeling much better Family compared to when first visiting therapy. He states there are few activities that increase his pain now. His only increase in pain occurs when using his arm to get into his car. Due to his low levels of pain throughout his work day and when completing activities around the home, he is being discharged from therapy with a home exercise plan.
== END 2022-02-10 10:11 | disposition home or self-care (01) ==
LOC: CHSPT 07:41
PROVIDERS: Visit Provider Internal Medicine
DX: M25.511 Pain in right shoulder (principal)
CPT/HCPCS: 97014; 97110; 97140; 97161; G0283

== ENCOUNTER 2025-01-07 07:15 | Outpatient (CLI) | payer OTHER, SELFPAY ==
--- NOTE | ~2025-01-07 | US_ITS ---
RIGHT UPPER QUADRANT ABDOMINAL ULTRASOUND (Doppler ultrasound interrogation techniques used as needed for this exam.) Ordering provider: Luis Ribeiro History: . ELEVATED LIVER ENZYMES, ALCOHOL USE . Comparison: None. FINDINGS: PANCREAS: Normal echotexture and size. PORTAL VEIN: Hepatopedal flow demonstrated. LIVER: Normal size and increased echotexture. No focal hepatic lesions or perihepatic fluid collectio ns are identified. BILIARY DUCTS: No intra or extrahepatic biliary dilation. Common bile duct measures 4.4 mm in diamete r which is normal for patient's age. GALLBLADDER: Multiple nonmobile areas suggestive of polyps. No stones, sludge, gallbladder wall thick ening or pericholecystic fluid. Wall thicknesses 0.4 cm. Negative sonographic Chandra's sign. FREE FLUID: None visualized within the upper abdomen. IMPRESSION: Fat infiltration. gallbladder polyps Otherwise, normal right upper quadrant ultrasound. Reviewed, dictated and finalized at location A. IMPRESSION: Fat infiltration. gallbladder polyps Otherwise, normal right upper quadrant ult rasound.
--- NOTE | ~2025-01-07 | XR_ITS ---
XR hip BI wo pelvis Ordering provider: Stacey Waters History: . LEFT AND RIGHT HIP PAIN,H/O RT FEMUR FX X30YR AGO . Comparison: None. FINDINGS: BONES: No acute fracture or dislocation. Old fracture in the shaft of the right femur is noted. HIP JOINT SPACES: Bilateral moderate osteoarthritic changes. SACROILIAC JOINT SPACES/LUMBAR SPINE: The sacroiliac joint spaces are normal. Mild degenerative roberto es of the visualized lower lumbar spine. PUBIC SYMPHYSIS: Normal. SOFT TISSUES: Normal. IMPRESSION: No acute osseous abnormality of the bilateral hips and pelvis. Bilateral moderate hip osteoarthritic changes. Reviewed, dictated and finalized at location A.
--- OUTSIDE RECORDS SUMMARY | 2025-01-07 07:21 | XMS_ITS | Encounter Summary ---
Author Organization [facility] Address Formerly [facility] [place] [address] Care Team Providers Care Valving Machine Operator Name Role Phone Lucho Lancaster MD Primary Care Provider [phone] Farhana Messer NP Unavailable Unavailable Jaleel Medina DO Primary Care Provider [phone] aCit Dyer APRN, NP-C Unavailable [phone] Guy Lazo MD Primary Care Provider [phone] Jaleel Medina DO Unavailable [phone] Jenaro Corona MD Unavailable [phone] Bradly Hollingsworth MD Primary Care Provider [phone] Encounter Details Date Type Department Care Team (Late st Contact Info) Description 08/10/2017 Abstract [facility] [address] [place] [address] [phone] Jeffery Sena MD Social History Tobacco Use Types Packs/Day Years Used Date Smoking Tobacco: Never Smokeless Tobacco: Never Alcohol Use Standard Drinks/Week Comments Yes 0 (1 standard drink = 0.6 oz pur e alcohol) occasionally Sex and Gender Information Value Date Recorded Sex Assigned at Not on file Legal Sex Male 5:14 PM CDT Gender Identity Not on file Sexual Orientation Not on file Occupation Industry Job Start Date Job End Date Not on file Not on file Not on file Not on file documented as of this encounter Plan of Treatment Upcoming Encounters Date Type Department Care Team (Late st Contact Info) Description 03/08/2025 1:45 PM CDT Office Visit [facility] [address] [place] [address] Jenaro Corona MD [address] [place] [phone] documented as of this encounter Visit Diagnoses Not on filedocumented in this encounter Care Teams Valving Machine Operator Relationship Specialty Start Date End Date Lucho Lancaster MD [address] [facility] [address] [place] [phone] PCP - General INTERNAL MEDICINE 01/11/17 12/27/21 Jaleel Medina DO [address] [employer] [facility] [address] [place], [place] [id number] PCP - General INTERNAL MEDICINE 12/28/21 12/28/21 Guy Lazo MD [address] [employer] [facility] [address] [place] [address] PCP - General FAMILY PRACTICE 12/29/21 12/29/22 Bradly Hollingsworth MD [address] [place] [id number] PCP - General INTERNAL MEDICINE 12/30/22 Farhana Messer, DAIRY WORKER [address] [facility] [address] [place] [address] EP Lead Simulation Modeling Engineer NURSE PRACTITIONER 07/20/17 12/27/21 Cait Dyer APRN, DAIRY WORKER-C [address] [employer] [address] [place] [address] Nurse Practitioner NURSE PRACTITIONER GERONTOLOGY 12/28/21 12/29/22 Jaleel Medina DO [address] [facility] [address] Consulting Physician INTERNAL MEDICINE 12/29/21 Jenaro Corona MD [address] [place] [phone] EP Lead Simulation Modeling Engineer CLINICAL CARDIAC ELECTROPHYSIOLOGY 12/30/22 documented as of this encounter
--- OUTSIDE RECORDS SUMMARY | 2025-01-07 07:21 | XMS_ITS | Clinical Summary ---
Author Organization [facility] Address [address] [place] [address] Care Team Providers Care Clinical Systems Analyst Name Role Phone Carol Jaleel Floyd DO Unavailable [phone] Jenaro Corona MD Unavailable [phone] Bradly Hollingsworth MD Primary Care Provider [phone] Allergies No known active allergies Medications rosuvastatin (CRESTOR) 20 MG tablet Take 0.5 tablets (10 mg total) by mouth nightly at bedtime. 1 07/20/2017 Active Multiple Vitamin (MULTIVITAMIN OR) Active [place] 3 1000 MG Cap Take 1,000 mg by mouth daily. Active lisinopril 20 MG tablet Take 1 tablet (20 mg total) by mouth daily. Active cetirizine (ZYRTEC) 10 MG tablet Take 1 tablet (10 mg total) by mouth daily. Active fluticasone propionate (FLONASE) 50 MCG/ACT nasal spray 2 sprays by Each Nostril route daily. Active lisinopril-hydr oCHLOROthiazide (ZESTORETIC) 20-25 MG tablet Take 1 tablet by mouth daily. Active sildenafil (VIAGRA) 100 MG tablet Take 1 tablet (100 mg total) by mouth daily as needed for Erectile Dysfunction. Active Magnesium Oxide 400 MG Cap Take 400 mg by mouth daily. Active semaglutide-vanessa ght management (WEGOVY) 2.4 mg/dose injection (PEN) SEMAGLUTIDE(W T LOSS) 2.4MG/0.75ML INJ,SOLN,PEN, 0.75ML Active INJECT 2.4MG/ONE PEN UNDER THE SKIN WEEKLY WEIGHT LOSS Sep 16, 2023 4 Sep 16, 2024 [id number] Feb 20, 2024 THERESARUDYMAXIMILIAN MA [facility] 09/16/2023 Active Active Problems Problem Noted Date Diagnosed Date Hypertension 01/29/2023 Family history of coronary artery disease 2022 Palpitation 08/25/2017 LV dysfunction 08/11/2017 Dilated aortic root 08/11/2017 PVC (premature ventricular contraction) 01/12/20 17 Atypical chest pain Hyperlipidemia Family History Medical History Relation Comments Heart Attack Father Open Heart Father Stent Cardiac Father Thyroid Disease Mother Relation Status Comments Father Alive Mother Alive Sister 1 Alive Sister 2 Alive Social History Tobacco Use Types Packs/Day Years Used Date Smoking Tobacco: Never Smokeless Tobacco: Never Tobacco Cessation:Counseling Given: Not Answered Alcohol Use Standard Drinks/Week Comments Yes 0 [...] file Not on file Not on file Last Filed Vital Signs Vital Sign Reading Time Taken Comments Blood Pressure 98/72 03/09/2024 10:54 AM CDT Pulse 61 03/09/2024 10:54 AM CDT EKG Temperature - - Respiratory Rate 16 03/09/2024 10:5 4 AM CDT Oxygen Saturation 97% 03/09/2024 10: 54 AM CDT Inhaled Oxygen Concentration - - Weight 113.8 kg (250 lb 12.8 oz) 2023 10:54 AM CDT Height 188 cm (6' 2 ) 03/09/2024 10:54 AM CDT reported Body Mass Index 32.2 03/09/2024 10:54 AM CDT Plan of Treatment Upcoming Encounters Date Type Department Care Team (Late st Contact Info) Description 03/08/2025 1:45 PM CDT Office Visit [facility] [address] [place] [address] Jenaro Corona MD [address] [place] [address] Health Maintenance Due Date Last Done Comments Colorectal Cancer Screening Colonoscopy (10 Years) 1973 Annual Physical 1976 Hepatitis C 1991 Hepatitis B Vaccines (1 of 3 - 19+ 3-dose series) 1992 Pneumococcal Vaccine: 50+ Years (1 of 1 - PCV) 2023 COVID-19 Vaccine (5 - season) 2024 09/23/2023, 09/03/2021, 11/13/2020, Additional history exists Zoster Vaccines (2 of 2) 08/31/2024 07/06/2024 DTaP, Tdap and Td Vaccines (2 - Td or Tdap) 12/19/2030 12/19/2020 Meningococcal B Vaccine Aged Out No l onger eligible based on patient's age to complete this topic Meningococcal Vaccine Aged Out No zara wilma eligible based on patient's age to complete this topic RSV Immunizations Under 20 Months Aged Out No longer eligible based on patient's age to complete this topic Insurance Med fusion [facility] Care Teams Clinical Systems Analyst Relationship Specialty Start Date End Date Bradly Hollingsworth MD [address] [address] PCP - General INTERNAL MEDICINE 12/30/22 Jaleel Medina DO [address] [place] [id number] Consulting Physician INTERNAL MEDICINE 12/29/21 Jenaro Corona MD [address] [place] [address] EP Front End Developer CLINICAL CARDIAC ELECTROPHYSIOLOGY 12/30/22
== END 2025-01-07 07:16 | disposition home or self-care (01) ==
LOC: CHSIMG 07:19
DX: R74.01 Elevation of levels of liver transaminase levels (principal); F10.90 Alcohol use, unspecified, uncomplicated; K82.4 Cholesterolosis of gallbladder; M16.0 Bilateral primary osteoarthritis of hip
CPT/HCPCS: 73521; 76705